=== PATIENT | female | born 1935 | race Caucasian/White ===

== ENCOUNTER 2022-11-29 17:45 | Inpatient (IN) | payer OTHER, MEDICARE ==
[~2022-11-29] VITALS: Ht 170.2 cm; Wt 90.3 kg
[2022-11-29 17:50] VITALS: BP_SYST 159
[2022-11-29] MEDS ORDERED: ONDANSETRON HCL 4 MG/2 ML VIAL IVP ONE (18:45)
[2022-11-29] MEDS ORDERED: MORPHINE 4 MG INJ. 4 MG/ML VIAL IVP ONE (18:45)
[2022-11-29 20:06] LABS: HEMATOCRIT 42.4 % (36-48); RED CELL DISTRIBUTION WIDTH 17.2 % (9.0-15.0)
[2022-11-29 20:12] LABS: HEMOGLOBIN 13.6 g/dL (12.0-16.0); MEAN CORPUSCULAR HEMOGLOBIN 28 pg (27-31); MEAN CORPUSCULAR HGB CONC 32 % (32-36); MEAN CORPUSCULAR VOLUME 86 fL (79.0-98.0); PLATELET COUNT (AUTO) 219 K/uL (130-430); RED BLOOD CELL COUNT(AUTO) 4.91 MIL/uL (4.2-6.2); WHITE BLOOD COUNT (AUTO) 23.6 K/uL (4.8-10.8)
[2022-11-29 20:14] LABS: ANION GAP 17 (5-15); CALCIUM 9.1 mg/dL (8.4-11.0); CHLORIDE 102 mmol/L (98-107); CREATININE 1.47 mg/dL (0.55-1.30); GLUCOSE 243 mg/dL (70-99); UREA NITROGEN, BLOOD 37 mg/dL (8-21)
[2022-11-29 20:28] LABS: ALANINE AMINOTRANSFERASE 32 U/L (12-78); ALBUMIN 3.8 g/dL (3.4-4.8); ASPARTATE AMINOTRANSFERASE 83 U/L (10-37); TOTAL BILIRUBIN 0.8 mg/dL (0.0-1.0)
[2022-11-29 20:31] LABS: BAND % (MANUAL) 11 % (0-6); BASOPHILS % (MANUAL) 0 % (0-2); EOSINOPHILS % (MANUAL) 0 % (0-7); LYMPHOCYTES % (MANUAL) 4 % (20-46); MONOCYTES % (MANUAL) 6 % (0-11)
[2022-11-29] MEDS ORDERED: NS 500 ML IV ONE (20:45)
[2022-11-29 20:55] LABS: CKMB RELATIVE INDEX 4.7 (0.0-2.9); CREATINE KINASE MB 70.4 ng/mL (0-3.6)
[2022-11-29] MEDS ORDERED: cefTRIAXone 1 GM IVPB PREMIX 50 ML IV ONE (21:00)
[2022-11-29] MEDS ORDERED: ONDANSETRON HCL 4 MG/2 ML VIAL IVP PRN (21:45)
[2022-11-29] MEDS ORDERED: ACETAMINOPHEN 325 MG TABLET PO PRN (21:45)
[2022-11-29] MEDS ORDERED: DEXTROSE 50% JECT 50 ML DISP.SYRIN IVP PRN (21:45)
[2022-11-29] MEDS ORDERED: MAGNESIUM SULFATE 50 ML IV PRN (21:45)
[2022-11-29] MEDS ORDERED: DOCUSATE SODIUM 100 MG CAPSULE PO PRN (21:45)
[2022-11-29] MEDS ORDERED: ZOLPIDEM TARTRATE 5 MG TABLET PO PRN (21:45)
[2022-11-29] MEDS ORDERED: POTASSIUM CHLORIDE 20 MEQ TAB.PRT.SR PO PRN (21:45)
[2022-11-29] MEDS ORDERED: MUPIROCIN 2% TOPICAL OINTMENT 22 GM NS PRN (21:45)
[2022-11-29] MEDS ORDERED: METF-379 PO (21:58)
[2022-11-29] MEDS ORDERED: VERA120C2 PO (21:58)
[2022-11-29] MEDS ORDERED: IPRATROPIUM/ALBUTEROL SULFATE 3 ML AMPUL.NEB (DUONEB) INH PRN (22:00)
[2022-11-29 23:35] VITALS: BP_SYST 133
[2022-11-29] MEDS ORDERED: AZITHROMYCIN 250 MG TABLET PO ONE (23:56)
[2022-11-30] VITALS: BP_SYST 133
[2022-11-30] MEDS: NACL 0.9% 1,000 ML IV SCH ×3 (00:26→23:54)
[2022-11-30] MEDS: ASPIRIN 81 MG TABLET(ECOTRIN) PO SCH ×2 (00:27→09:19)
[2022-11-30] MEDS: MORPHINE 2 MG/ML INJ. SYRINGE IVP PRN (00:28)
[2022-11-30 04:15] VITALS: BP_SYST 127
[2022-11-30] MEDS: INSULIN LISPRO SLIDING SCALE 100 UNITS/ML, 3 ML VIAL (humaLOG) SUBCUT PRN ×2 (06:13→11:40)
[2022-11-30 08:25] LABS: BASOPHILS % (AUTO) 0.1 % (0.0-2.0); HEMATOCRIT 37.3 % (36-48); HEMOGLOBIN 11.9 g/dL (12.0-16.0); LYMPHOCYTES # (AUTO) 0.5 K/uL (1.0-5.5); LYMPHOCYTES % (AUTO) 2.4 % (20.5-51.5); MEAN CORPUSCULAR HEMOGLOBIN 27 pg (27-31); MEAN CORPUSCULAR HGB CONC 32 % (32-36); MEAN CORPUSCULAR VOLUME 86 fL (79.0-98.0); MONOCYTES # (AUTO) 1.4 K/uL (0.0-1.0); MONOCYTES % (AUTO) 7.1 % (1.7-9.3); NEUTROPHILS # (AUTO) 17.6 K/uL (1.8-7.7); NEUTROPHILS % (AUTO) 90.4 % (40.0-70.0); PLATELET COUNT (AUTO) 248 K/uL (130-430); RED BLOOD CELL COUNT(AUTO) 4.35 MIL/uL (4.2-6.2); RED CELL DISTRIBUTION WIDTH 16.9 % (9.0-15.0); WHITE BLOOD COUNT (AUTO) 19.4 K/uL (4.8-10.8)
[2022-11-30 08:27] LABS: ANION GAP 14 (5-15); CALCIUM 9.1 mg/dL (8.4-11.0); CHLORIDE 102 mmol/L (98-107); GLUCOSE 276 mg/dL (70-99); UREA NITROGEN, BLOOD 48 mg/dL (8-21)
[2022-11-30 08:36] VITALS: BP_SYST 127
[2022-11-30 08:38] LABS: INR 0.9 (0.8-1.2); PROTHROMBIN TIME 9.8 SECS (9.5-12.5)
[2022-11-30 08:46] LABS: ALANINE AMINOTRANSFERASE 35 U/L (12-78); ALBUMIN 3.5 g/dL (3.4-4.8); ASPARTATE AMINOTRANSFERASE 68 U/L (10-37); CHOLESTEROL 211 mg/dL (<200); HDL CHOLESTEROL 84 mg/dL (>55); THYROID STIMULATING HORMONE 3.57 uIu/mL (0.34-4.82); TOTAL BILIRUBIN 0.7 mg/dL (0.0-1.0); TRIGLYCERIDES 130 mg/dL (30-150)
[2022-11-30] MEDS: AZITHROMYCIN 250 MG TABLET PO SCH (09:19)
[2022-11-30] MEDS: METOPROLOL TARTRATE 25 MG TABLET PO SCH ×2 (09:19→21:00)
[2022-11-30] MEDS: HEPARIN SODIUM,PORCINE 5,000 UNITS/ML VIAL SUBCUT SCH ×2 (09:27→21:44)
[2022-11-30 09:30] LABS: CKMB RELATIVE INDEX 3.2 (0.0-2.9); CREATINE KINASE MB 41.6 ng/mL (0-3.6)
[2022-11-30 11:34] VITALS: BP_SYST 109
[2022-11-30 17:38] VITALS: BP_SYST 128
[2022-11-30 19:45] VITALS: BP_SYST 135
[2022-11-30] MEDS: cefTRIAXone 1 GM in D5W 50 ML IV SCH (21:43)
[2022-12-01] VITALS: BP_SYST 153
[2022-12-01] MEDS: NACL 0.9% 1,000 ML IV SCH ×3 (05:24→20:32)
[2022-12-01] MEDS: MORPHINE 2 MG/ML INJ. SYRINGE IVP PRN ×2 (06:00→20:18)
[2022-12-01 07:04] LABS: BASOPHILS % (AUTO) 0.1 % (0.0-2.0); EOSINOPHILS % (AUTO) 0.1 % (0.0-4.0); HEMATOCRIT 35.1 % (36-48); HEMOGLOBIN 11.3 g/dL (12.0-16.0); LYMPHOCYTES # (AUTO) 0.7 K/uL (1.0-5.5); MEAN CORPUSCULAR HEMOGLOBIN 28 pg (27-31); MEAN CORPUSCULAR HGB CONC 32 % (32-36); MEAN CORPUSCULAR VOLUME 86 fL (79.0-98.0); MONOCYTES # (AUTO) 1.5 K/uL (0.0-1.0); NEUTROPHILS # (AUTO) 14.9 K/uL (1.8-7.7); NEUTROPHILS % (AUTO) 86.8 % (40.0-70.0); PLATELET COUNT (AUTO) 229 K/uL (130-430); RED CELL DISTRIBUTION WIDTH 16.8 % (9.0-15.0); WHITE BLOOD COUNT (AUTO) 17.2 K/uL (4.8-10.8)
[2022-12-01 07:45] LABS: ANION GAP 13 (5-15); CALCIUM 8.6 mg/dL (8.4-11.0); CHLORIDE 106 mmol/L (98-107); CREATININE 1.99 mg/dL (0.55-1.30); GLUCOSE 211 mg/dL (70-99); UREA NITROGEN, BLOOD 66 mg/dL (8-21)
[2022-12-01 08:00] VITALS: BP_SYST 156
[2022-12-01 08:08] LABS: CKMB RELATIVE INDEX 1.6 (0.0-2.9); CREATINE KINASE MB 11.8 ng/mL (0-3.6)
[2022-12-01] MEDS: ASPIRIN 81 MG TABLET(ECOTRIN) PO SCH (09:27)
[2022-12-01] MEDS: METOPROLOL TARTRATE 25 MG TABLET PO SCH ×2 (09:27→20:20)
[2022-12-01] MEDS: AZITHROMYCIN 250 MG TABLET PO SCH (09:27)
[2022-12-01] MEDS ORDERED: POLYETHYLENE GLYCOL 3350, 17 GM/ POWD.PACK PO ONE (09:30)
[2022-12-01] MEDS: HEPARIN SODIUM,PORCINE 5,000 UNITS/ML VIAL SUBCUT SCH ×2 (09:50→20:20)
[2022-12-01 11:28] VITALS: BP_SYST 143
[2022-12-01 15:17] VITALS: BP_SYST 141
[2022-12-01] MEDS: INSULIN LISPRO SLIDING SCALE 100 UNITS/ML, 3 ML VIAL (humaLOG) SUBCUT PRN ×2 (19:09→20:29)
[2022-12-01 19:50] VITALS: BP_SYST 135
[2022-12-01] MEDS: cefTRIAXone 1 GM in D5W 50 ML IV SCH (20:18)
[2022-12-01 21:18] LABS: BILIRUBIN,URINE 1+ (NEGATIVE); CLARITY/URINE SL CLOUDY (CLEAR); COLOR,URINE YELLOW (YELLOW); GLUCOSE,URINE 1+ (NEGATIVE); KETONES,URINE TRACE (NEGATIVE); LEUKOCYTE ESTERASE ,URINE NEGATIVE (NEGATIVE); NITRITE, URINE NEGATIVE (NEGATIVE); PROTEIN URINE 1+ (NEGATIVE); UROBILINOGEN,URINE 0.2 (0.2-1.0)
[2022-12-01 21:34] LABS: BLOOD, URINE TRACE (NEGATIVE)
[2022-12-01 21:56] LABS: BACTERIA,URINE None Seen /HPF (None Seen); WBC,URINE NONE SEEN /HPF (0-3)
[2022-12-01 21:57] LABS: FINE GRANULAR CASTS,URINE 0-10 /LPF (None Seen); HYALINE CASTS, URINE 0-10 /LPF (None Seen); URINE AMORPHOUS URATE 1+ /HPF (None Seen)
[2022-12-02 03:05] VITALS: BP_SYST 155
[2022-12-02] MEDS: NACL 0.9% 1,000 ML IV SCH ×4 (05:16→22:23)
[2022-12-02] MEDS: INSULIN LISPRO SLIDING SCALE 100 UNITS/ML, 3 ML VIAL (humaLOG) SUBCUT PRN ×4 (06:30→22:14)
[2022-12-02 07:14] LABS: BASOPHILS % (AUTO) 0.1 % (0.0-2.0); HEMATOCRIT 32.5 % (36-48); HEMOGLOBIN 10.6 g/dL (12.0-16.0); LYMPHOCYTES # (AUTO) 0.9 K/uL (1.0-5.5); LYMPHOCYTES % (AUTO) 5.6 % (20.5-51.5); MEAN CORPUSCULAR HEMOGLOBIN 28 pg (27-31); MEAN CORPUSCULAR HGB CONC 33 % (32-36); MEAN CORPUSCULAR VOLUME 85 fL (79.0-98.0); MONOCYTES # (AUTO) 1.6 K/uL (0.0-1.0); MONOCYTES % (AUTO) 10.7 % (1.7-9.3); NEUTROPHILS # (AUTO) 12.6 K/uL (1.8-7.7); NEUTROPHILS % (AUTO) 83.6 % (40.0-70.0); PLATELET COUNT (AUTO) 229 K/uL (130-430); RED BLOOD CELL COUNT(AUTO) 3.81 MIL/uL (4.2-6.2); RED CELL DISTRIBUTION WIDTH 16.9 % (9.0-15.0); WHITE BLOOD COUNT (AUTO) 15.1 K/uL (4.8-10.8)
[2022-12-02 07:20] LABS: URINE SODIUM, RANDOM 11 mmol/L (40-220)
[2022-12-02 07:30] LABS: ANION GAP 10 (5-15); CALCIUM 8.5 mg/dL (8.4-11.0); CHLORIDE 110 mmol/L (98-107); CREATININE 1.28 mg/dL (0.55-1.30); GLUCOSE 199 mg/dL (70-99); UREA NITROGEN, BLOOD 65 mg/dL (8-21)
[2022-12-02 07:57] LABS: ALANINE AMINOTRANSFERASE 27 U/L (12-78); ALBUMIN 2.5 g/dL (3.4-4.8); ASPARTATE AMINOTRANSFERASE 23 U/L (10-37); TOTAL BILIRUBIN 0.6 mg/dL (0.0-1.0)
[2022-12-02 09:06] VITALS: BP_SYST 158
[2022-12-02] MEDS: AZITHROMYCIN 250 MG TABLET PO SCH (09:15)
[2022-12-02] MEDS: POLYETHYLENE GLYCOL 3350, 17 GM/ POWD.PACK PO SCH (09:15)
[2022-12-02] MEDS: ASPIRIN 81 MG TABLET(ECOTRIN) PO SCH (09:15)
[2022-12-02] MEDS: METOPROLOL TARTRATE 25 MG TABLET PO SCH ×2 (09:15→21:59)
[2022-12-02] MEDS: HEPARIN SODIUM,PORCINE 5,000 UNITS/ML VIAL SUBCUT SCH ×2 (09:16→22:04)
[2022-12-02 12:23] VITALS: BP_SYST 157
[2022-12-02 16:14] VITALS: BP_SYST 159
[2022-12-02] MEDS: MORPHINE 2 MG/ML INJ. SYRINGE IVP PRN ×2 (17:19→22:22)
[2022-12-02 20:00] VITALS: BP_SYST 163
[2022-12-02] MEDS: cefTRIAXone 1 GM in D5W 50 ML IV SCH (21:59)
[2022-12-03] VITALS: BP_SYST 143
[2022-12-03] MEDS: LORazepam 2 MG/ML VIAL IVP PRN ×2 (00:16→19:50)
[2022-12-03] MEDS: NACL 0.9% 1,000 ML IV SCH ×3 (05:24→17:09)
[2022-12-03] MEDS: INSULIN LISPRO SLIDING SCALE 100 UNITS/ML, 3 ML VIAL (humaLOG) SUBCUT PRN ×4 (05:31→21:38)
[2022-12-03 06:04] LABS: BASOPHILS % (AUTO) 0.2 % (0.0-2.0); EOSINOPHILS % (AUTO) 0.1 % (0.0-4.0); HEMATOCRIT 35.5 % (36-48); HEMOGLOBIN 11.3 g/dL (12.0-16.0); LYMPHOCYTES # (AUTO) 1.1 K/uL (1.0-5.5); LYMPHOCYTES % (AUTO) 8.6 % (20.5-51.5); MEAN CORPUSCULAR HEMOGLOBIN 28 pg (27-31); MEAN CORPUSCULAR HGB CONC 32 % (32-36); MEAN CORPUSCULAR VOLUME 87 fL (79.0-98.0); MONOCYTES # (AUTO) 1.6 K/uL (0.0-1.0); MONOCYTES % (AUTO) 11.7 % (1.7-9.3); NEUTROPHILS # (AUTO) 10.6 K/uL (1.8-7.7); NEUTROPHILS % (AUTO) 79.4 % (40.0-70.0); PLATELET COUNT (AUTO) 234 K/uL (130-430); RED BLOOD CELL COUNT(AUTO) 4.08 MIL/uL (4.2-6.2); RED CELL DISTRIBUTION WIDTH 17.8 % (9.0-15.0); WHITE BLOOD COUNT (AUTO) 13.4 K/uL (4.8-10.8)
[2022-12-03 06:49] LABS: ANION GAP 10 (5-15); CHLORIDE 114 mmol/L (98-107); CREATININE 0.94 mg/dL (0.55-1.30); GLUCOSE 157 mg/dL (70-99); UREA NITROGEN, BLOOD 48 mg/dL (8-21)
[2022-12-03 08:00] VITALS: BP_SYST 146
[2022-12-03] MEDS: HEPARIN SODIUM,PORCINE 5,000 UNITS/ML VIAL SUBCUT SCH ×2 (09:00→20:47)
[2022-12-03] MEDS: ASPIRIN 81 MG TABLET(ECOTRIN) PO SCH (09:19)
[2022-12-03] MEDS: METOPROLOL TARTRATE 25 MG TABLET PO SCH ×2 (09:19→21:16)
[2022-12-03] MEDS: POLYETHYLENE GLYCOL 3350, 17 GM/ POWD.PACK PO SCH (09:20)
[2022-12-03] MEDS: AZITHROMYCIN 250 MG TABLET PO SCH (09:20)
[2022-12-03] MEDS: MORPHINE 2 MG/ML INJ. SYRINGE IVP PRN ×3 (09:33→21:18)
[2022-12-03 11:27] VITALS: BP_SYST 127
[2022-12-03 14:03] LABS: INR 0.9 (0.8-1.2); PROTHROMBIN TIME 9.6 SECS (9.5-12.5)
[2022-12-03] MEDS ORDERED: hydrALAZINE HCL 20 MG/ML VIAL IVP PRN (18:30)
[2022-12-03 18:46] VITALS: BP_SYST 168
[2022-12-03 20:00] VITALS: BP_SYST 150
[2022-12-03] MEDS: cefTRIAXone 1 GM in D5W 50 ML IV SCH (21:17)
[2022-12-04] VITALS: BP_SYST 145
[2022-12-04] MEDS: NACL 0.9% 1,000 ML IV SCH ×4 (01:14→21:52)
[2022-12-04] MEDS: INSULIN LISPRO SLIDING SCALE 100 UNITS/ML, 3 ML VIAL (humaLOG) SUBCUT PRN ×4 (06:07→21:55)
[2022-12-04 06:10] LABS: HEMOGLOBIN 12.3 g/dL (12.0-16.0); MEAN CORPUSCULAR HEMOGLOBIN 28 pg (27-31); MEAN CORPUSCULAR HGB CONC 32 % (32-36); MEAN CORPUSCULAR VOLUME 87 fL (79.0-98.0); PLATELET COUNT (AUTO) 276 K/uL (130-430); RED BLOOD CELL COUNT(AUTO) 4.49 MIL/uL (4.2-6.2); RED CELL DISTRIBUTION WIDTH 17.5 % (9.0-15.0); WHITE BLOOD COUNT (AUTO) 12.8 K/uL (4.8-10.8)
[2022-12-04 06:49] LABS: ANION GAP 10 (5-15); CALCIUM 8.7 mg/dL (8.4-11.0); CHLORIDE 113 mmol/L (98-107); CREATININE 0.91 mg/dL (0.55-1.30); GLUCOSE 186 mg/dL (70-99); UREA NITROGEN, BLOOD 39 mg/dL (8-21)
[2022-12-04 08:25] VITALS: BP_SYST 147
[2022-12-04] MEDS: METOPROLOL TARTRATE 25 MG TABLET PO SCH ×2 (08:51→21:51)
[2022-12-04] MEDS: AZITHROMYCIN 250 MG TABLET PO SCH (08:52)
[2022-12-04] MEDS: MORPHINE 2 MG/ML INJ. SYRINGE IVP PRN ×3 (08:55→21:53)
[2022-12-04] MEDS: HEPARIN SODIUM,PORCINE 5,000 UNITS/ML VIAL SUBCUT SCH ×2 (09:00→21:50)
[2022-12-04] MEDS: ASPIRIN 81 MG TABLET(ECOTRIN) PO SCH (09:00)
[2022-12-04 11:13] LABS: BAND % (MANUAL) 2 % (0-6); BASOPHILS % (MANUAL) 0 % (0-2); EOSINOPHILS % (MANUAL) 2 % (0-7); LYMPHOCYTES % (MANUAL) 18 % (20-46); MONOCYTES % (MANUAL) 11 % (0-11)
[2022-12-04 11:50] VITALS: BP_SYST 157
[2022-12-04] MEDS: POLYETHYLENE GLYCOL 3350, 17 GM/ POWD.PACK PO SCH (17:49)
[2022-12-04 18:02] VITALS: BP_SYST 150
[2022-12-04 20:00] VITALS: BP_SYST 129
[2022-12-04] MEDS: cefTRIAXone 1 GM in D5W 50 ML IV SCH (21:49)
[2022-12-05] VITALS: BP_SYST 130
[2022-12-05] MEDS: NACL 0.9% 1,000 ML IV SCH ×4 (03:44→23:44)
[2022-12-05] MEDS: INSULIN LISPRO SLIDING SCALE 100 UNITS/ML, 3 ML VIAL (humaLOG) SUBCUT PRN ×4 (06:55→21:29)
[2022-12-05 08:00] VITALS: BP_SYST 146
[2022-12-05] MEDS: ASPIRIN 81 MG TABLET(ECOTRIN) PO SCH (10:09)
[2022-12-05] MEDS: POLYETHYLENE GLYCOL 3350, 17 GM/ POWD.PACK PO SCH (10:09)
[2022-12-05] MEDS: METOPROLOL TARTRATE 25 MG TABLET PO SCH ×2 (10:10→21:10)
[2022-12-05] MEDS: HEPARIN SODIUM,PORCINE 5,000 UNITS/ML VIAL SUBCUT SCH ×2 (10:13→21:20)
[2022-12-05 12:06] VITALS: BP_SYST 134
[2022-12-05 16:00] VITALS: BP_SYST 131
[2022-12-05 20:30] VITALS: BP_SYST 117
[2022-12-05] MEDS: cefTRIAXone 1 GM in D5W 50 ML IV SCH (21:12)
[2022-12-05] MEDS: MORPHINE 2 MG/ML INJ. SYRINGE IVP PRN (21:13)
[2022-12-06 00:22] VITALS: BP_SYST 151
[2022-12-06] MEDS: NACL 0.9% 1,000 ML IV SCH ×2 (06:29→13:14)
[2022-12-06] MEDS: INSULIN LISPRO SLIDING SCALE 100 UNITS/ML, 3 ML VIAL (humaLOG) SUBCUT PRN ×2 (06:35→11:41)
[2022-12-06 07:40] VITALS: BP_SYST 155
[2022-12-06] MEDS ORDERED: METO25TA6 PO (09:02)
[2022-12-06] MEDS ORDERED: Aspirin Ec PO (09:02)
[2022-12-06] MEDS ORDERED: METF-379 PO (09:04)
[2022-12-06] MEDS: ASPIRIN 81 MG TABLET(ECOTRIN) PO SCH (09:24)
[2022-12-06 09:26] VITALS: BP_SYST 155
[2022-12-06] MEDS: METOPROLOL TARTRATE 25 MG TABLET PO SCH (09:26)
[2022-12-06] MEDS: POLYETHYLENE GLYCOL 3350, 17 GM/ POWD.PACK PO SCH (09:26)
[2022-12-06] MEDS: HEPARIN SODIUM,PORCINE 5,000 UNITS/ML VIAL SUBCUT SCH (09:35)
[2022-12-06 11:26] VITALS: BP_SYST 137
[2022-12-06 13:07] VITALS: BP_SYST 137
[2022-12-06 15:30] VITALS: BP_SYST 120
== END 2022-12-06 16:35 | DRG 871 ==
LOC: SED 17:45 → STU 21:53
PROVIDERS: ADMIT General Practice; ATTEND General Practice
DX: A41.9 Sepsis, unspecified organism (principal); I21.4 Non-ST elevation (NSTEMI) myocardial infarction; J18.9 Pneumonia, unspecified organism; N17.0 Acute kidney failure with tubular necrosis; S42.212A Unspecified displaced fracture of surgical neck of left humerus, initial encounter for closed fracture; S42.292A Other displaced fracture of upper end of left humerus, initial encounter for closed fracture; M62.82 Rhabdomyolysis; N39.0 Urinary tract infection, site not specified; W18.39XA Other fall on same level, initial encounter; E66.9 Obesity, unspecified; E11.65 Type 2 diabetes mellitus with hyperglycemia; H54.61 Unqualified visual loss, right eye, normal vision left eye; Z20.822 Contact with and (suspected) exposure to COVID-19; I11.0 Hypertensive heart disease with heart failure; I50.9 Heart failure, unspecified; Z66 Do not resuscitate; Y93.89 Activity, other specified; Y92.89 Other specified places as the place of occurrence of the external cause; Y99.8 Other external cause status; Z90.710 Acquired absence of both cervix and uterus; Z68.31 Body mass index [BMI] 31.0-31.9, adult; Z85.3 Personal history of malignant neoplasm of breast; Z92.3 Personal history of irradiation
CPT/HCPCS: 36415; 70450-TC; 71045; 71250-TC; 72125-TC; 73000-TC; 73060-TC; 73200-TC; 73502; 76376; 76604; 76770; 80048; 80053; 80061; 81000; 82550; 82553; 82570; 83037; 83605; 83735; 83880; 84302; 84443; 84484; 85007; 85025; 85027; 85610-TC; 85730-TC; 87040; 87081; 93005; 93306; 94640; 94760; 96365; 96375; 99285; G0378; J0360; J0696; J1644; J2060; J2270; J2405; J7060; Q0144